=== PATIENT | female | born 1975 ===

== ENCOUNTER 2016-10-03 17:35 | Emergency (ER) | payer MEDICAID ==
[2016-10-03 17:48] VITALS: TEMP 98.1; O2SAT 100
--- NOTE | 2016-10-03 18:00 | ED PDOC ---
HPI: Chest Pain Time Seen by Provider: 10/03/16 17:51 Chief Complaint (Nursing): Chest Pain History Per: Patient (Chest pain assoc with dizziness x 1 day. Chest pain is intermittent, nonradiating. Not assoc with SOB. No cough.) Onset/Duration Of Symptoms: Days (1) Current Symptoms Are (Timing): Intermittent Episodes Severity: Moderate Pain Scale Rating Of: 4 Quality: Sharp Associated Symptoms: Other (Dizziness) Exacerbating Factors: None Alleviating Factors: None Past Medical History Vital Signs: Last Vital Signs Temp 98.1 F 10/03/16 17:44 Pulse 75 10/03/16 20:09 Resp 14 10/03/16 20:09 BP 117/75 10/03/16 20:09 Pulse Ox 100 10/04/16 02:23 - Medical History PMH: Asthma - Surgical History Surgical History: Appendectomy, (1x) - Family History Family History: States: Unknown Family Hx - Home Medications Home Medications: Ambulatory Orders Medication Instructions Recorded Albuterol HFA [Ventolin HFA 90 1 puff INH BID #0 inhaler 07/15/15 mcg/actuation (8 g)] Fluticasone/Salmeterol 250/50 1 puff INH BID #0 puff 07/15/15 [Advair Diskus 250/50] Guaifenesin [Mucinex] 600 mg PO Q12 #0 tab.er.12h 07/15/15 Loratadine [Claritin] 10 mg PO DAILY #0 tab 07/15/15 Moxifloxacin HCl [Avelox] 400 mg PO DAILY #7 tablet 07/15/15 Prednisone 20 mg PO BID #0 tablet 07/15/15 - Allergies Allergies/Adverse Reactions: Allergies Allergy/AdvReac Type Severity Reaction Status Date / Time Penicillins Allergy RASH Verified 07/14/15 16:14 seafood Allergy RASH Uncoded 07/14/15 16:15 Review of Systems ROS Statement: Except As Marked, All Systems Reviewed And Found Negative Cardiovascular: Positive for: Chest Pain Neurological: Positive for: Dizziness Physical Exam - Reviewed Nursing Documentation Reviewed: Yes Vital Signs Reviewed: Yes - Physical Exam Appears: Positive for: Non-toxic, No Acute Distress Head Exam: Positive for: ATRAUMATIC, NORMAL INSPECTION, NORMOCEPHALIC Skin: Positive for: Normal Color, Warm, DRY Eye Exam: Positive for: EOMI, Normal appearance, PERRL ENT: Positive for: Normal ENT Inspection Neck: Positive for: Normal, Painless ROM Cardiovascular/Chest: Positive for: Regular Rate, Rhythm Respiratory: Positive for: CNT, Normal Breath Sounds Gastrointestinal/Abdominal: Positive for: Normal Exam, Bowel Sounds, Soft Back: Positive for: Normal Inspection Extremity: Positive for: Normal ROM. Negative for: Calf Tenderness, Swelling Neurologic/Psych: Positive for: Alert, Oriented - Laboratory Results Result Diagrams: 10/03/16 18:14 10/03/16 18:14 - ECG O2 Sat by Pulse Oximetry: 100 Disposition - Clinical Impression Clinical Impression: Atypical chest pain - Patient ED Disposition Is Patient to be Admitted: Transfer of Care - Disposition Referrals: Ugo Belle MD [Family Provider] - Disposition: Transfer of Care Disposition Time: 19:00 Condition: STABLE Instructions: Noncardiac Chest Pain (ED) Print Language: SLOVAK Patient Signed Over To: Mio Ying
[2016-10-03 18:16] LABS: BASO # 0.1 K/uL (0.0-0.2); BASO % 0.8 % (0.0-2.0); EOS # 0.5 K/uL (0.0-0.7); EOS % 6.6 % (0.0-4.0); HEMATOCRIT 40.3 % (34.0-47.0); LYMPH # 3.1 K/uL (1.0-4.3); LYMPH % 39.8 % (20.0-40.0); MEAN CELL VOLUME 87.4 fl (81.0-99.0); MEAN CORPUSCULAR HEMOGLOBIN 28.5 pg (27.0-31.0); MEAN CORPUSCULAR HGB CONC 32.6 g/dL (33.0-37.0); MONO # 0.6 K/uL (0.0-0.8); NEUT # 3.5 K/uL (1.8-7.0); NEUT % 44.8 % (50.0-75.0); NRBC % 0.1 % (0.0-0.0); RED CELL DISTRIBUTION WIDTH 14.1 % (11.5-14.5); WHITE BLOOD COUNT 7.8 K/uL (4.8-10.8)
[2016-10-03 18:34] LABS: ALB/GLOB RATIO 1.1 (1.0-2.1); ALKALINE PHOSPHATASE 59 U/L (38-126); ALT/SGPT 29 U/L (9-52); AST/SGOT 21 U/L (14-36); BILIRUBIN,TOTAL 0.4 mg/dl (0.2-1.3); BLOOD UREA NITROGEN 11 mg/dl (7-17); CARBON DIOXIDE 22 mmol/L (22-30); CHLORIDE 108 mmol/L (98-107); GFR AFRICAN-AMERICAN > 60; GLUCOSE,RANDOM 91 mg/dL (65-105); POTASSIUM 4.1 MMOL/L (3.6-5.0); SODIUM 143 mmol/l (132-148); TOTAL PROTEIN 7.4 G/DL (6.3-8.2)
[2016-10-03 20:10] VITALS: BP 117/75; PULSE 75; RESP 14
--- NOTE | 2016-10-03 21:18 | ED PDOC ---
- Laboratory Results Result Diagrams: 10/03/16 18:14 10/03/16 18:14 - ECG O2 Sat by Pulse Oximetry: 100 Medical Decision Making Medical Decision Makin:00 Pt signed out to me by Dr. Little MD. Pending re-evaluation and disposition. 21:15 Pt was re-evaluated. Initially reported episodes of chest pain since arrival to ED, but reports some improvement. Pt declined offered observation status. Pt will be discharged routinely and will schedule a follow-up with her PMD Dr. Belle within 1-2 days. Advised to return if condition persists or worsen. Clinical impression- atypical chest pain and dizziness. Condition is stable for discharge. Documented by Jose Raul Barnes, acting as a scribe for Mio Ying MD. All medical record entries made by the Scribe were at my direction and personally dictated by me. I have reviewed the chart and agree that the record accurately reflects my personal performance of the history, physical exam, medical decision making, and the department course for this patient. I have also personally directed, reviewed, and agree with the discharge instructions and disposition. Disposition - Clinical Impression Clinical Impression: Atypical chest pain - POA Present On Arrival: None - Disposition Referrals: Ugo Belle MD [Family Provider] - Disposition: Routine/Home Disposition Time: 21:15 Condition: STABLE Instructions: Noncardiac Chest Pain (ED) Print Language: CHADIAN
--- NOTE | 2016-10-04 10:28 | RAD ---
HISTORY: chest pain COMPARISON: Chest x-ray performed 07/14/15 TECHNIQUE: Chest, one view. FINDINGS: LUNGS: No focal consolidation. Please note that chest x-ray has limited sensitivity for the detection of pulmonary masses. PLEURA: No significant pleural effusion identified. No definite pneumothorax . CARDIOVASCULAR: The cardiomediastinal silhouette appears within normal limits of size. OSSEOUS STRUCTURES: No acute osseous abnormality identified. VISUALIZED UPPER ABDOMEN: Unremarkable. OTHER FINDINGS: None. IMPRESSION: No focal consolidation, significant pleural effusion, or definite pneumothorax identified.
--- NOTE | 2016-10-04 16:05 | CARD ---
APPROVED REPORT EKG Measurement Heart [id number] HI 170P60 [id number] <Conclusion> Normal sinus rhythm Normal ECG
== END 2016-10-03 20:50 | disposition home or self-care (01) ==
LOC: SUPCPDRO 17:35 → H.ER 17:35
DX: R07.9 Chest pain, unspecified (principal); Z88.0 Allergy status to penicillin; J45.909 Unspecified asthma, uncomplicated

== ENCOUNTER 2017-03-28 13:19 | Emergency (ER) | payer MEDICAID ==
[2017-03-28 13:28] VITALS: TEMP 98.1
--- NOTE | 2017-03-28 14:22 | ED PDOC ---
HPI: Chest Pain Time Seen by Provider: 03/28/17 13:33 Chief Complaint (Nursing): Chest Pain History Per: Patient History/Exam Limitations: language barrier ([place] [id number]) Onset/Duration Of Symptoms: Days (3x days ) Current Symptoms Are (Timing): Still Present Severity: Moderate Pain Scale Rating Of: 6 Quality: Sharp Associated Symptoms: Other (yellow discharge ) Exacerbating Factors: Movement Alleviating Factors: Other (advil ) Additional Complaint(s): 41 YO Female with PMH of asthma and gastritis presents to [facility] ED for L sided breast pain. Per pt this pain started 3x days ago and has been consistent throughout that time. Pt describes the pain as dull pain that is exacerbated by movement, and alleviated moderately with Advil. Pain is rated as a 6/10, with no radiation, and has had some yellow discharge. No blood noted, and pt does not endorse any skin changes in the breast. Per pt and chart review, she had 2 cyst found in her last mammogram, last mammogram (08/2013) was done early this year, BIRAD 2. Denies dyspnea, palpitations, and pain with exertion. Additionally, pt also rectal bleeding with RLQ pain that started around 1 PM today. Per patient, she had a few episodes of blood per rectum, and describes it as bright blood. Has hx of external hemorrhoids. Pt states that it hurts when had a BM this AM. No weight change, no n/v/d/c. Pt has a colonoscopy 2 yrs ago, and per pt the colonoscopy was normal. Past Medical History Reviewed: Historical Data, Nursing Documentation, Vital Signs Vital Signs: Last Vital Signs Temp 98.1 F 03/28/17 13:24 Pulse 84 03/28/17 13:52 Resp 18 03/28/17 13:24 BP 124/82 03/28/17 13:24 Pulse Ox 96 03/28/17 17:59 - Medical History PMH: Asthma, Gastritis - Surgical History Surgical History: Appendectomy, (1x) - Family History Family History: States: Unknown Family Hx - Living Arrangements Living Arrangements: With Family - Social History Current smoker - smoking cessation education provided: No Ex-Smoker (has not smoked in the last 12 months): No Alcohol: Social Drugs: Denies - Home Medications Home Medications: Ambulatory Orders Medication Instructions Recorded Albuterol HFA [Ventolin HFA 90 1 puff INH BID #0 inhaler 07/15/15 mcg/actuation (8 g)] Fluticasone/Salmeterol 250/50 1 puff INH BID #0 puff 07/15/15 [Advair Diskus 250/50] Guaifenesin [Mucinex] 600 mg PO Q12 #0 tab.er.12h 07/15/15 Loratadine [Claritin] 10 mg PO DAILY #0 tab 07/15/15 Moxifloxacin HCl [Avelox] 400 mg PO DAILY #7 tablet 07/15/15 Prednisone 20 mg PO BID #0 tablet 07/15/15 Ibuprofen [Motrin Tab] 600 mg PO Q6 PRN #15 tab 03/28/17 - Allergies Allergies/Adverse Reactions: Allergies Allergy/AdvReac Type Severity Reaction Status Date / Time Penicillins Allergy RASH Verified 07/14/15 16:14 seafood Allergy RASH Uncoded 07/14/15 16:15 MARYLU Risk Score for UA/NSTEMI - MARYLU Risk Score Age > 64: NO 3 or more CAD Risk Factors: NO Known CAD (Stenosis greater than 50%): NO Aspirin use in past 7 days: NO Severe Angina: NO EKG ST changes greater than 0.5mm: NO MARYLU Score: 0 Risk %: 5% Curb-65 Severity Score - CURB-65 Severity Score Confusion: No Bun >19mg/dl (>7mmol/L): No Respiratory Rate greater than/equal to 30: No Systolic BP <90 or Diastolic BP less than/equal 60mmHg: No Age >64: No Curb-65 Score: 0 Percentage 30-day mortality: 0.6% Wells Criteria for PE - Wells Criteria for Pulmonary Embolism Clinical Signs and Symptoms of DVT: No P.E is #1 Diagnosis, or Equally Likely: No Heart Rate >100: No Immobilization at least 3 days;Surgery previous 4 weeks: No Previous, objectively diagnosed PE or DVT: No Hemoptysis: No Malignancy w/treatment within 6 months, or palliative: No Total Score: 0 Review of Systems ROS Statement: Except As Marked, All Systems Reviewed And Found Negative Constitutional: Negative for: Fever, Chills, Weight loss Cardiovascular: Positive for: Chest Pain (L sided breast pain ). Negative for: Palpitations Respiratory: Negative for: Cough, Shortness of Breath, Pleuritic Pain, Sputum Gastrointestinal: Positive for: Abdominal Pain (RLQ pain), Hematochezia. Negative for: Nausea, Vomiting Skin: Negative for: Rash, Lesions Psych: Positive for: Anxiety Physical Exam - Reviewed Nursing Documentation Reviewed: Yes Vital Signs Reviewed: Yes - Physical Exam Appears: Positive for: Well, Non-toxic, In Acute Distress (Pt looks very anxios ) Head Exam: Positive for: ATRAUMATIC, NORMAL INSPECTION, NORMOCEPHALIC Skin: Positive for: Normal Color, Warm, DRY Eye Exam: Positive for: EOMI, Normal appearance, PERRL ENT: Positive for: Normal ENT Inspection Neck: Positive for: Normal, Painless ROM Cardiovascular/Chest: Positive for: Regular Rate, Rhythm, Other (+ L chest wall tenderness. L Breast is tender to palpation 12 o'clock to 5 o'clock. No changes in skin, no redness, no erythema, no edema, and no indurations. Breasts are symmetrical b/l. ) Respiratory: Positive for: CNT, Normal Breath Sounds Gastrointestinal/Abdominal: Positive for: Bowel Sounds, Soft, Tenderness (RLQ tenderness ). Negative for: Mass, Distended, Guarding Back: Positive for: Normal Inspection Rectal: Positive for: Normal Exam, Rectal Tone Is: (normal ), Hemorrhoids (1 external hemorrhoids, approx 5mm, no erythema noted. ), Other (No blood appreciated on exam. ). Negative for: Mass, Tenderness Extremity: Positive for: Normal ROM Neurologic/Psych: Positive for: Alert, Oriented - Laboratory Results Result Diagrams: 03/28/17 14:30 03/28/17 14:30 - ECG ECG: Positive for: Interpreted By Me ECG Rhythm: Positive for: Normal QRS, Normal ST Segment, Sinus Rhythm O2 Sat by Pulse Oximetry: 96 - Progress ED Course And Treament: Management was discussed with pt, she agrees with plan. UA neg, test neg. CBC and CMP wnl. EKG, normal sinus rhyme, with rate of 88 bpm, and no ST changes (interpreted by me) Chest x-ray appreciated, no active disease with no interval changes. u/s L breast appreciated, fibrocystic changes 12-5 o'clock and small cysts. BIRAD 2 17:58- Pt feels better, and well enough to go home. VS wnl. D/c home with follow up with surgery and GI specialist With ibuprofen for pain. Disposition - Clinical Impression Clinical Impression: Breast pain, Rectal bleeding - Disposition Referrals: Braydon CASSIDY,MD Pam [Medical Doctor] - Dario Moctezuma MD [Staff Provider] - Disposition Time: 17:58 Condition: STABLE Additional Instructions: See surgeon and GI specialist for further testing. Return to ER for any worse or new symptoms. Prescriptions: Ibuprofen [Motrin Tab] 600 mg PO Q6 PRN #15 tab PRN Reason: Pain, Moderate (4-7) Instructions: Breast Self Exam for Women (ED), Rectal Bleeding (ED), Cyst (ED) Forms: [facility] (Slovak) Print Language: URUGUAYAN
[2017-03-28 14:55] LABS: ALB/GLOB RATIO 1.3 (1.0-2.1); ALKALINE PHOSPHATASE 50 U/L (38-126); ALT/SGPT 28 U/L (9-52); AST/SGOT 27 U/L (14-36); BILIRUBIN,TOTAL 0.3 mg/dl (0.2-1.3); BLOOD UREA NITROGEN 12 mg/dl (7-17); CALCIUM 9.3 mg/dL (8.4-10.2); CARBON DIOXIDE 24 mmol/L (22-30); CHLORIDE 108 mmol/L (98-107); GFR AFRICAN-AMERICAN > 60; GLUCOSE,RANDOM 87 mg/dL (65-105); POTASSIUM 3.9 MMOL/L (3.6-5.0); SODIUM 142 mmol/l (132-148); TOTAL PROTEIN 7.1 G/DL (6.3-8.2)
[2017-03-28 14:56] LABS: BASO % 0.5 % (0.0-2.0); EOS # 0.3 K/uL (0.0-0.7); EOS % 4.7 % (0.0-4.0); HEMATOCRIT 39.5 % (34.0-47.0); LYMPH # 2.2 K/uL (1.0-4.3); LYMPH % 34.1 % (20.0-40.0); MEAN CELL VOLUME 87.2 fl (81.0-99.0); MEAN CORPUSCULAR HEMOGLOBIN 29.4 pg (27.0-31.0); MEAN CORPUSCULAR HGB CONC 33.7 g/dL (33.0-37.0); MEAN PLATELET VOLUME 9.9 fl (7.2-11.7); MONO # 0.5 K/uL (0.0-0.8); MONO % 7.2 % (0.0-10.0); NEUT # 3.5 K/uL (1.8-7.0); NEUT % 53.5 % (50.0-75.0); NRBC % 0.1 % (0.0-0.0); RED CELL DISTRIBUTION WIDTH 14.1 % (11.5-14.5); WHITE BLOOD COUNT 6.5 K/uL (4.8-10.8)
--- NOTE | 2017-03-28 15:13 | RAD ---
HISTORY: Left-sided chest pain. COMPARISON: 10/03/2016 TECHNIQUE: Chest PA and lateral FINDINGS: LUNGS: No active pulmonary disease. PLEURA: No significant pleural effusion identified. No pneumothorax apparent. CARDIOVASCULAR: Normal. OSSEOUS STRUCTURES: No significant abnormalities. VISUALIZED UPPER ABDOMEN: Normal. OTHER FINDINGS: None. IMPRESSION: No active disease. No significant interval change compared to the prior examination(s). Please note: No preliminary report/ innterpretation of this examination provided by emergency department personnel.
--- NOTE | 2017-03-28 16:46 | US ---
HISTORY: Reason for exam: Left breast pain. COMPARISON: Left breast ultrasound exam 09/15/2016. TECHNIQUE: BREAST LIMITED LT - left breast ultrasound was performed in limited fashion in the in the distribution of the patient's reported pain from 12 o'clock to 5 o'clock. FINDINGS: LEFT BREAST: A few small system been identified. No solid mass identified. At the 2 o'clock radius at the site of patient's pain, there is a 0.8 x 0.3 x 0.3 cm cyst with a solitary septation exhibiting posterior acoustic enhancement and no shadowing or color Doppler blood flow. Further, a a 0.8 x 0.7 x 0.4 cm cysts identified in the 4 o'clock radius also appearing avascular on color ultrasound with post acoustic enhancement and sharp peripheral margins. Finally, a complex cyst with the solids at septation is seen at the 5 o'clock radius measuring 0.6 x 0.4 x 0.6 cm avascular on color per ultrasound. The priors simple cyst at the 3 o'clock radius is not identified with 2 o'clock cyst stable in appearance. The 5 o'clock cyst may be a new finding as this area was not interrogated previously. IMPRESSION: No sonographic evidence of malignancy at this time. Fluctuant fibrocystic changes are suggested with multiple small cysts identified as discrete described above, in the distribution of the patient's pain. Is unclear whether these are response with the patient's symptoms and further clinical correlation is advised. . BIRAD: BI-RADS 2 -benign findings as discussed above. Recommendations: Further clinical correlation is advised for the patient's symptoms as it is not clear that fibrocystic change corresponds to the etiology of the patient's clinical symptoms. Annual screening mammography, monthly self-breast examination and annual medical breast examination remain recommended.
[2017-03-28 18:14] VITALS: BP 119/64; PULSE 78; RESP 16; O2SAT 99
--- NOTE | 2017-03-29 12:46 | CARD ---
APPROVED REPORT EKG Measurement Heart [id number] [id number] <Conclusion> Normal sinus rhythm Normal ECG
== END 2017-03-28 18:15 | disposition home or self-care (01) ==
LOC: H.ER 13:19
DX: N60.02 Solitary cyst of left breast (principal); K64.8 Other hemorrhoids
CPT/HCPCS: 71020; 76642; 80053; 81025; 85025; 93005; 96374; 99283; J1885

== ENCOUNTER 2017-06-16 12:47 | Emergency (ER) | payer MEDICAID ==
[2017-06-16 13:00] VITALS: BP 134/89; PULSE 84; RESP 16; TEMP 97.6; O2SAT 100
[2017-06-16] MEDS ORDERED: Sodium Chloride 0.9% 1,000 ML IV STA (13:38)
--- NOTE | 2017-06-16 13:38 | ED PDOC ---
HPI:Nausea, Vomiting, Diarrhea Time Seen by Provider: 06/16/17 13:20 Chief Complaint (Nursing): Chest Pain Chief Complaint (Provider): Dizziness/Vomiting History Per: Patient History/Exam Limitations: no limitations Onset/Duration Of Symptoms: Hrs Current Symptoms Are (Timing): Still Present Additional Complaint(s): Wanda Nicole is a 41 year old female with no past medical history that presents to the ED with a chief complaint of dizziness and vomiting, associated with chest pain and difficulty breathing that she has been experiencing for the past few hours. Patient reports that she has vomiting all day, and that her dizziness worsens when she moves her head. Patient reports that she used to have dizzy spells in the past, but that they were "never like this." She denies any fever. Past Medical History Reviewed: Historical Data, Nursing Documentation, Vital Signs Vital Signs: Last Vital Signs Temp 97.6 F 06/16/17 12:53 Pulse 84 06/16/17 12:53 Resp 16 06/16/17 12:53 BP 134/89 06/16/17 12:53 Pulse Ox 100 06/16/17 12:53 - Medical History PMH: Asthma, Gastritis - Surgical History Surgical History: Appendectomy, (1x) - Family History Family History: States: Unknown Family Hx - Social History Current smoker - smoking cessation education provided: No Alcohol: None Drugs: Denies - Home Medications Home Medications: Ambulatory Orders Medication Instructions Recorded Albuterol HFA [Ventolin HFA 90 1 puff INH BID #0 inhaler 07/15/15 mcg/actuation (8 g)] Fluticasone/Salmeterol 250/50 1 puff INH BID #0 puff 07/15/15 [Advair Diskus 250/50] Guaifenesin [Mucinex] 600 mg PO Q12 #0 tab.er.12h 07/15/15 Loratadine [Claritin] 10 mg PO DAILY #0 tab 07/15/15 Moxifloxacin HCl [Avelox] 400 mg PO DAILY #7 tablet 07/15/15 Prednisone 20 mg PO BID #0 tablet 07/15/15 Ibuprofen [Motrin Tab] 600 mg PO Q6 PRN #15 tab 03/28/17 Meclizine [Meclizine*] 25 mg PO Q6 #10 tab 06/16/17 - Allergies Allergies/Adverse Reactions: Allergies Allergy/AdvReac Type Severity Reaction Status Date / Time Penicillins Allergy RASH Verified 07/14/15 16:14 seafood Allergy RASH Uncoded 07/14/15 16:15 Review of Systems Constitutional: Negative for: Fever Cardiovascular: Positive for: Chest Pain Gastrointestinal: Positive for: Vomiting Neurological: Positive for: Dizziness Physical Exam - Reviewed Nursing Documentation Reviewed: Yes Vital Signs Reviewed: Yes - Physical Exam Appears: Positive for: Non-toxic, No Acute Distress Head Exam: Positive for: ATRAUMATIC, NORMOCEPHALIC Skin: Positive for: Normal Color, Warm Eye Exam: Positive for: EOMI, PERRL, Nystagmus Cardiovascular/Chest: Positive for: Regular Rate, Rhythm. Negative for: Murmur Respiratory: Positive for: Normal Breath Sounds. Negative for: Wheezing Gastrointestinal/Abdominal: Positive for: Normal Exam, Soft. Negative for: Tenderness Neurologic/Psych: Positive for: Alert, Oriented. Negative for: Motor/Sensory Deficits - Laboratory Results Result Diagrams: 06/16/17 13:58 06/16/17 13:58 - ECG O2 Sat by Pulse Oximetry: 100 (RA) Pulse Ox Interpretation: Normal Medical Decision Making Medical Decision Making: Impression: Vertigo Plan: * CMP * CBC * Antivert 25 mg PO * Zofran 4 mg IV * NaCl 1000 mLs at 1000 mLs/hr * Reevaluation 15:00 Patient's labs are normal, no neurologic deficit, is ambulating normally, steady gait. Patient states that she is feeling better, referred patient to Dr. Leiva for follow up, given Rx for Meclizine, and is stable for discharge home. Scribe Attestation: Documented by Wilma Nielson, acting as a scribe for Shazia Matos MD. Provider Scribe Attestation: All medical record entries made by the Scribe were at my direction and personally dictated by me. I have reviewed the chart and agree that the record accurately reflects my personal performance of the history, physical exam, medical decision making, and the department course for this patient. I have also personally directed, reviewed, and agree with the discharge instructions and disposition. Disposition - Clinical Impression Clinical Impression: Vertigo - Patient ED Disposition Is Patient to be Admitted: No Doctor Will See Patient In The: ED - Disposition Referrals: [facility] [Outside] Gage Leiva MD [Medical Doctor] - Disposition: Routine/Home Disposition Time: 15:00 Condition: IMPROVED Additional Instructions: follow up with your primary doctor in 1-2 days follow up with neurology referral as instructed return to the ED with any worsening or concerning symptoms Prescriptions: Meclizine [Meclizine*] 25 mg PO Q6 #10 tab Instructions: Vertigo (ED) Forms: [facility] (Cymro) Print Language: STATELESS Patient Signed Over To: Jamey Barnes (pending labs and reevaluation)
[2017-06-16 14:33] LABS: BASO % 0.3 % (0.0-2.0); EOS # 0.4 K/uL (0.0-0.7); EOS % 5.2 % (0.0-4.0); HEMOGLOBIN 13.6 g/dL (12.0-16.0); LYMPH # 1.4 K/uL (1.0-4.3); LYMPH % 21.1 % (20.0-40.0); MEAN CELL VOLUME 87.3 fl (81.0-99.0); MEAN CORPUSCULAR HEMOGLOBIN 29.4 pg (27.0-31.0); MEAN CORPUSCULAR HGB CONC 33.7 g/dL (33.0-37.0); MONO # 0.4 K/uL (0.0-0.8); MONO % 5.6 % (0.0-10.0); NEUT # 4.6 K/uL (1.8-7.0); NEUT % 67.8 % (50.0-75.0); NRBC % 0.1 % (0.0-0.0); RBC 4.62 Mil/uL (3.80-5.20); RED CELL DISTRIBUTION WIDTH 14.2 % (11.5-14.5); WHITE BLOOD COUNT 6.8 K/uL (4.8-10.8)
[2017-06-16 14:36] LABS: ALB/GLOB RATIO 1.2 (1.0-2.1); ALBUMIN 4.3 g/dL (3.5-5.0); ALT/SGPT 35 U/L (9-52); AST/SGOT 20 U/L (14-36); BLOOD UREA NITROGEN 10 mg/dl (7-17); CALCIUM 9.1 mg/dL (8.4-10.2); GFR AFRICAN-AMERICAN > 60; GFR NON-AFRICAN AMERICAN > 60
--- NOTE | 2017-06-16 14:55 | ED PDOC ---
- Laboratory Results Result Diagrams: 06/16/17 13:58 06/16/17 13:58 - ECG O2 Sat by Pulse Oximetry: 100 (RA) Medical Decision Making Medical Decision Makin:00 Patient signed out to me by Dr. Matos pending labs and reevaluation. Scribe Attestation: Documented by Wilma Nielson, acting as a scribe for Jamey Barnes MD. Provider Scribe Attestation: All medical record entries made by the Scribe were at my direction and personally dictated by me. I have reviewed the chart and agree that the record accurately reflects my personal performance of the history, physical exam, medical decision making, and the department course for this patient. I have ao personally directed, reviewed, and agree with the discharge instructions and disposition. Disposition - Disposition Condition: FAIR Forms: [employer] (Tajik)
--- NOTE | 2017-06-17 09:27 | CARD ---
APPROVED REPORT EKG Measurement Heart [id number] 168P43 [id number] <Conclusion> Normal sinus rhythm Normal ECG
== END 2017-06-16 15:15 | disposition home or self-care (01) ==
LOC: H.ER 12:47
DX: R42 Dizziness and giddiness (principal); Z88.0 Allergy status to penicillin; J45.909 Unspecified asthma, uncomplicated
CPT/HCPCS: 80053; 85025; 93005; 96374; 99283; J2405; J7040